=== PATIENT | female | born 1990 | race Caucasian/White ===

== ENCOUNTER 2023-06-19 08:14 | Outpatient (CLI) | payer OTHER, SELFPAY ==
--- NOTE | ~2023-06-19 | CT_ITS ---
Non-contrast Head CT History: Headache Technique: Axial non-contrast imaging of the brain was performed. Dose reduction technique was used on this scan by utilizing automated exposure control and iterative reconstruction technique. The dose -length product (DLP) was 599.57 mGy-cm. Findings: There is no evidence of intracranial hemorrhage, mass lesion, or acute infarct. Brain par enchyma appears normal. The ventricles and subarachnoid spaces are normal in size. The calvarium ap pears normal. The visualized paranasal sinuses and mastoid air cells are clear. Impression: No significant abnormality seen. Reviewed, dictated and finalized at location . Impression: No significant abnormality seen.
== END 2023-06-19 08:15 ==
LOC: MICIMG 08:16
PROVIDERS: PCP Family Medicine; Visit Provider Family Medicine
DX: G44.86 Cervicogenic headache (principal); J30.1 Allergic rhinitis due to pollen; F33.1 Major depressive disorder, recurrent, moderate; R76.8 Other specified abnormal immunological findings in serum
CPT/HCPCS: 70450